=== PATIENT | female | born 1965 | race Caucasian/White ===

== ENCOUNTER 2016-10-25 14:04 | Emergency (ER) | payer MEDICAID, OTHER ==
[~2016-10-25] VITALS: Wt 69.0 kg
[2016-10-25] MEDS ORDERED: traMADol 50 MG TAB PO ONE (16:00)
--- NOTE | 2016-10-25 16:31 | RADRPT ---
PROCEDURE: US Lower extremity Venous. CLINICAL INDICATION: Right leg pain TECHNIQUE: Multiple sonographic images of the right lower extremity deep venous system was obtaine d utilizing grayscale, color-flow, compressive sonography and doppler imaging with augmentation. Th e images were reviewed on a PACS workstation. COMPARISON: None. FINDINGS: There is normal compressibility and flow within the right common femoral, superficial femoral, poste rior tibial, peroneal and popliteal veins. RPTAT: AA IMPRESSION: No sonographic evidence for deep venous thrombosis. .Manuel Ha MD, MD Date Time Electronically viewed and signed by .Manuel Ha MD, on 10/25/2016 16:30 .S/
--- NOTE | 2016-10-25 16:51 | RADRPT ---
PROCEDURE: CR Right Knee CLINICAL INDICATION: Pain TECHNIQUE: An AP, lateral, and an a tunnel view were submitted. COMPARISON: None FINDINGS: Osseous Structures: The osseous elements appear well mineralized and intact. Join Spaces: The joint spaces are well maintained. A small joint effusion is evident.. Soft Tissues: The soft tissues appear unremarkable. IMPRESSION: 1. Small joint effusion 2. Otherwise, unremarkable right knee. Physician Abimbola Date Time Electronically viewed and signed by Masha Reyes Physician on 10/25/2016 16:51 /
[2016-10-25] MEDS ORDERED: TRAM50TA2 PO (17:18)
[2016-10-25] MEDS ORDERED: IBUP-1542 PO (17:18)
--- NOTE | 2016-10-25 17:21 | ERD ---
ER Documentation Chief Complaint Date/Time DATE: 10/25/16 TIME: 17:20 Chief Complaint r knee pain and swelling from running past month. no deformtiy HPI This 51-year-old female presents with a one-month history of right knee pain. Started after running after the bus. She has mild swelling of fevers, weakness , redness or bleeding. ROS All systems reviewed and are negative except as per history of present illness. Medications Home Meds Active Scripts Tramadol HCl (Tramadol HCl) 50 Mg Tablet, 50 MG PO Q4 Y for PAIN, #20 TAB Prov:DNAIEL SCALES MD 10/25/16 Ibuprofen* (Motrin*) 600 Mg Tab, 600 MG PO Q6, #30 TAB Prov:DANIEL SCALES MD 10/25/16 Allergies Allergies: Coded Allergies: No Known Allergy (Unverified , 10/24/14) PMhx/Soc Medical and Surgical Hx: pt denies Medical Hx Anesthesia Reaction: No Hx Neurological Disorder: No Hx Respiratory Disorders: No Hx Cardiac Disorders: No Hx Psychiatric Problems: No Hx Miscellaneous Medical Probl: No Hx Alcohol Use: No Hx Substance Use: No Hx Tobacco Use: No Physical Exam Vitals Vital Signs Date Time Temp Pulse Resp B/P Pulse Ox O2 Delivery O2 Flow Rate FiO2 10/25/16 14:08 98.8 92 21 165/85 98 Physical Exam Const: [] Alert, [id number] per Head: Atraumatic Eyes: Normal Conjunctiva ENT: Normal External Ears, Nose and Mouth. Neck: Full range of motion..~ No meningismus. Resp: Clear to auscultation bilaterally Cardio: Regular rate and rhythm, no murmurs Abd: Soft, non tender, non distended. Normal bowel sounds Skin: No petechiae or rashes Back: No midline or flank tenderness Ext: No cyanosis, or edema. Mild swelling of the right knee joint without deformities, warmth or erythema. There is minimal swelling behind the right knee in the proximal calf. There is no gross Homans sign. The right lower extremity is neurovascularly intact. Neur: Awake and alert Psych: Normal Mood and Affect Results 24 hrs Current Medications Medications (Trade) Dose Ordered Sig/Nell Route PRN Reason Start Time Stop Time Status Last Admin Dose Admin Tramadol HCl (Ultram) 50 mg ONCE ONCE PO 10/25/16 16:00 10/25/16 16:01 DC 10/25/16 16:21 Procedures/MDM X-ray Knee 3V Interpreted by me: Bones: No fracture Joints: No dislocation Foreign body: None. Impression-no acute findings on right knee x-ray Right lower extremity Doppler negative for DVT. Patient was given tramadol 50 mg by mouth. Patient has signs and symptoms of right knee pain after running or awkward movement 1 month ago. She has no history of fracture, dislocation, neurologic deficits, bacterial infection. She will be treated with tramadol ibuprofen, and instructed to follow-up with primary doctor and orthopedist. She will return for fevers, redness, new or worsening symptoms. The child was stable with no new complaints during the ER course. Clinically there is currently no evidence to suggest meningitis, sepsis, acute abdomen or appendicitis, pneumonia, or any other emergent condition that appears to require further evaluation or hospitalization. The child will be sent home with the parents with instructions to return for any new or worsening symptoms per the aftercare instructions. They should otherwise follow up with her primary care doctor this week. Departure Diagnosis: Primary Impression: Knee pain, right Chronicity: acute Qualified Code: M25.561 - Acute pain of right knee Condition: Stable Patient Instructions: Knee Pain, Uncertain Cause Referrals: PEPITO NUNEZ MD Additional Instructions: Examines normal hoy. Cheque otro vez con reyes doctor primario en el proximo kent or regresa para mas o nueva simptomas. DANIEL SCALES MD Oct 25, 2016 17:21
== END 2016-10-25 17:32 | disposition home or self-care (01) ==
LOC: FTE 14:04
DX: M25.561 Pain in right knee (principal)
CPT/HCPCS: 73562; 93971; Z7502; Z7610